=== PATIENT | male | born 1950 | race Caucasian/White ===

== ENCOUNTER → 2020-08-28 | Outpatient (CLI) | payer MEDICARE ==
--- NOTE | 2020-08-28 21:32 | CONS ---
CONSULTATION DATE OF SERVICE: 08/28/2020 This 70-year-old gentleman has been [facility] for obstructive sleep apnea-hypopnea syndrome. HISTORY OF PRESENT ILLNESS/SLEEP WAKE EVALUATION: The patient had a sleep study 20 years ago, which showed that he has obstructive sleep apnea. He was started on treatment with CPAP. Since that time, the patient continues to use his CPAP equipment. His equipment is old, apparently, according to his , even while he is using CPAP he has episodes of stopped breathing and snoring with open mouth during sleep. The patient using a nasal pillow mask. Results of previous sleep studies are not available. The patient's sleep schedule from 3 a.m. until 9:30 a.m. No problems with falling asleep, according to the patient. No TV in bedroom. He usually sleeps in the back position. He, again as mentioned above, may sleep with the open mouth during sleep and will snore. [place] Sleepiness Scale increased to 10. PAST MEDICAL HISTORY: Positive for atrial fibrillation with 3 cardiac ablation procedures. MEDICATIONS: Eliquis, metoprolol, statin - the patient does not remember the dose at night. REVIEW OF SYSTEMS: Are tiredness and sleepiness during the day. Patient may take 1 or more naps during the day. FAMILY HISTORY: Heart problems. PHYSICAL EXAM: GENERAL: A pleasant gentleman without distress. BP 136/70, HR 55, RR 15, height 5 feet 10 inches, weight 348, mass index 48.5. Temperature 97.3, oxygen saturation 94%. HEENT: Oropharynx extremely low position of soft palate. Mallampati IV. NECK: Neck is wide, measuring 19 inches in circumference. ABDOMEN: Obese. LUNGS: Clear to percussion and to auscultation. Good air exchange. No wheezing or rhonchi. HEART: S1, S2 regular. No murmurs, gallops, or rubs. ABDOMEN: Soft and nontender. Bowel sounds are present. No organomegaly appreciated. EXTREMITIES: No clubbing or cyanosis. SHELVER: Awake, alert, and oriented X3. Cranial nerves 2 to 7 intact. There is no fasciculation or atrophy noted. No focal deficits observed. IMPRESSION: 1. History of obstructive sleep apnea-hypopnea syndrome for 20 years, results of previous sleep studies are not available. While using CPAP, the patient wakes up and has episodes of snoring with open mouth, according to his . 2. Extremely low position of soft palate. Neck is wide, 19 inches in circumference. [place] Sleepiness Scale increased to 10. Obstructive sleep apnea-hypopnea syndrome. CPAP equipment is old. 3. Morbid obesity, BMI 48.5. 4. History of atrial fibrillation. 5. Status post 3 cardiac ablation procedures. 6. Hyperlipidemia. PLAN: 1. Home sleep apnea test for confirmation of obstructive sleep apnea-hypopnea syndrome. 2. CPAP if necessary, BiPAP titration for correction of respiratory abnormalities and then to get new CPAP if necessary, BiPAP equipment. 3. Patient will continue to use PAP equipment every night for the whole night. 4. Sleep hygiene with regular time in bed for at least 7-1/2 to 8 hours. 5. Precautions related to driving. No driving if feeling sleepiness. 6. I will maintain all necessary prescription for PAP supplies including mask, tube, filters. 7. Losing weight. 8. Follow-up visit in 6 months or earlier if patient has any problems. Thank you very much for referring this patient for evaluation. Sincerely, Hugo Abel MD, PhD, FAASM Diplomat of [employer] Sleep Medicine Board of [employer] [facility] [place] MMODL / ALICEN: [id number] /
== END | disposition home or self-care (01) ==
LOC: SLEEP 13:44
PROVIDERS: ATTEND Internal Medicine
DX: G47.33 Obstructive sleep apnea (adult) (pediatric) (principal); I48.91 Unspecified atrial fibrillation; E78.5 Hyperlipidemia, unspecified; E66.9 Obesity, unspecified; Z68.42 Body mass index [BMI] 45.0-49.9, adult; Z79.01 Long term (current) use of anticoagulants; Z79.899 Other long term (current) drug therapy; Z98.890 Other specified postprocedural states
CPT/HCPCS: 99211

== ENCOUNTER 2023-06-05 12:26 | Emergency (ER) | payer MEDICARE ==
--- NOTE | 2023-06-05 12:53 | ED ---
Fall HPI - General Chief Complaint: Fall Stated Complaint: Fall on thinner-Head injury Time Seen by Provider: 06/05/23 12:30 Source: patient, RN notes reviewed Mode of arrival: ambulatory - History of Present Illness Initial Comments: 73-year-old male on Eliquis presenting for head injury status post mechanical fall. Patient states he was at a [employer] hockey game 1 hour [employer] when he attempted to sit down in a chair in the arena. The chair came apart, and the patient fell back, hitting his right elbow and the back of his head on the cement ground. Denies loss of consciousness, syncope, lightheadedness, nausea, vomiting. Denies vision changes, numbness, tingling, weakness. He is complaining of right elbow pain since the fall. He is also complaining of left hip pain since the fall. He is able to weight-bear. Denies other injuries. - Related Data Allergies Allergy/AdvReac Type Severity Reaction Status Date / Time Penicillins Allergy Rash/Hives Verified 06/05/23 12:31 Review of Systems ROS Statement: Those systems with pertinent positive or pertinent negative responses have been documented in the HPI. ROS Other: All systems not noted in ROS Statement are negative. Past Medical History Past Medical History: Atrial Fibrillation History of Any Multi-Drug Resistant Organisms: None Reported Additional Past Surgical History / Comment(s): Ablation x3 Past Psychological History: No Psychological Hx Reported Smoking Status: Never smoker Past Alcohol Use History: None Reported Past Drug Use History: None Reported General Exam Limitations: no limitations General appearance: alert, in no apparent distress Head exam: Present: atraumatic, normocephalic, other (3 x 3 cm area of erythema present on back of head. Mildly tender to palpation.) Eye exam: Present: normal appearance, PERRL, EOMI. Absent: scleral icterus, conjunctival injection, periorbital swelling ENT exam: Present: normal exam, mucous membranes moist, TM's normal bilaterally Neck exam: Present: normal inspection (No C-spine tenderness to palpation). Absent: tenderness, meningismus, lymphadenopathy Respiratory exam: Present: normal lung sounds bilaterally. Absent: respiratory distress, wheezes, rales, rhonchi, stridor Cardiovascular Exam: Present: regular rate, normal rhythm, normal heart sounds. Absent: systolic murmur, diastolic murmur, rubs, gallop, clicks Extremities exam: Present: other (Right elbow: No bruising or skin changes. Mild tenderness to palpation over dorsal aspect of right elbow. Full range of motion and strength. Full sensation and radial pulses bilaterally. Cap refill less than 2 seconds) Left Hip exam: Present: normal inspection, full ROM, tenderness (Diffuse minimal tenderness along left hip.), external rotation, internal rotation. Absent: swelling, abrasion, shortening Upper Leg exam: Present: normal inspection, full ROM. Absent: tenderness Neurological exam: Present: alert, oriented X3, CN II-XII intact Psychiatric exam: Present: normal affect, normal mood Skin exam: Present: warm, dry, intact, normal color. Absent: rash Course Vital Signs 06/05/23 12:28 Temperature 98.2 F Pulse Rate 60 Respiratory 20 Rate Blood Pressure 158/91 O2 Sat by Pulse 97 Oximetry Medical Decision Making - Medical Decision Making Was pt. sent in by a medical professional or institution (, PA, YARD BRAKEMAN, urgent care, hospital, or correction...) When possible be specific @ -No Did you speak to anyone other than the patient for history (EMS, parent, family, police, friend...)? What history was obtained from this source @ -Patient's supplemented history Did you review nursing and triage notes (agree or disagree)? Why? @ -I reviewed and agree with nursing and triage notes Were old charts reviewed (outside hosp., previous admission, EMS record, old EKG, old radiological studies, urgent care reports/EKG's, correction records)? Report findings @ -No old charts were reviewed Differential Diagnosis (chest pain, altered mental status, abdominal pain women, abdominal pain men, vaginal bleeding, weakness, fever, dyspnea, syncope, headache, dizziness, GI bleed, back pain, seizure, CVA, palpatations, mental health, musculoskeletal)? @ -Head contusion, hematoma, concussion, intracranial bleed EKG interpreted by me (3pts min.). @ -None X-rays interpreted by me (1pt min.). @ -Left hip and right elbow x-ray revealed no acute fracture CT interpreted by me (1pt min.). @ -CT of head and neck revealed no acute process U/S interpreted by me (1pt. min.). @ -None done What testing was considered but not performed or refused? (CT, X-rays, U/S, labs)? Why? @ -None What meds were considered but not given or refused? Why? @ -None Did you discuss the management of the patient with other professionals (professionals i.e. , PA, YARD BRAKEMAN, lab, RT, psych nurse, social services director, ammunition storekeeper, teacher, combat systems officer, business case analyst)? Give summary @ -No Was smoking cessation discussed for >3mins.? @ -No Was critical care preformed (if so, how long)? @ -No Were there social determinants of health that impacted care today? How? (Homelessness, low income, unemployed, alcoholism, drug addiction, transportation, low edu. Level, literacy, decrease access to med. care, [facility] [facility], rehab)? @ -No Was there de-escalation of care discussed even if they declined (Discuss DNR or withdrawal of care, Hospice)? DNR status @ -No What co-morbidities impacted this encounter? (DM, HTN, Smoking, COPD, CAD, Cancer, CVA, ARF, Chemo, Hep., AIDS, mental health diagnosis, sleep apnea, morbid obesity)? @ -None Was patient admitted / discharged? Hospital course, mention meds given and route, prescriptions, significant lab abnormalities, going to OR and other pertinent info. @ -Patient was discharged. Patient was seen and evaluated for head injury status post mechanical fall 1 hour prior to arrival. There are no red flag symptoms. Neuro examination is normal. CT of head and neck, right elbow x-ray, left hip x-ray are all negative. Alarm symptoms discussed with patient, return to ER if symptoms occur. Patient discharged in stable condition. Case discussed with Dr. Brooke Undiagnosed new problem with uncertain prognosis? @ -No Drug Therapy requiring intensive monitoring for toxicity (Heparin, Nitro, Insulin, Cardizem)? @ -No Were any procedures done? @ -No Diagnosis/symptom? @ -Head injury Acute, or Chronic, or Acute on Chronic? @ -Acute Uncomplicated (without systemic symptoms) or Complicated (systemic symptoms)? @ -Uncomplicated Side effects of treatment? @ -No Exacerbation, Progression, or Severe Exacerbation? @ -No Poses a threat to life or bodily function? How? (Chest pain, [place], [place], pneumonia, PE, COPD, DKA, ARF, appy, cholecystitis, CVA, Diverticulitis, Homicidal, Suicidal, threat to staff... and all critical care pts) @ -No Disposition Clinical Impression: Head injury, acute Disposition: HOME SELF-CARE Condition: Stable Instructions (If sedation given, give patient instructions): Head Injury (ED) Additional Instructions: Please return to the Emergency Department if symptoms worsen or any other concerns. Is patient prescribed a controlled substance at d/c from ED?: No Referrals: Ge Pichardo DO [Primary Care Provider] - 1-2 days Time of Disposition: 13:56
[2023-06-05 13:09] VITALS: TEMP 98.2
--- NOTE | 2023-06-05 13:39 | CT ---
EXAMINATION TYPE: CT brain ricki red con DATE OF EXAM: 06/05/2023 COMPARISON: HISTORY: PAIN AFTER FALL OUT OF CHAIR. PT HIT BACK OF HEAD CT DLP: 1949.1 mGycm Automated exposure control for dose reduction was used. Technique: Examination of the head was done in axial plane without intravenous contrast. Coronal and sagittal reconstructions performed. CT of the cervical spine was obtained in axial plane without intravenous injection of contrast mater ial. Coronal and sagittal reformatted images were obtained from the axial views for evaluation of f ractures, spinal alignment and canal. FINDINGS: Head: There is no evidence of acute intracranial hemorrhage, acute ischemic changes, mass, mass-effect, or extra-axial fluid collection. There is no effacement of cerebral sulci or basal subarachnoid cister ns. There is no hydrocephalus. There is no midline shift. Orellana-white matter distinction is preserv ed. Trace mucosal thickening ethmoid air cells. Orbits and globes are intact. Slight leftward nasal septa l deviation. Mastoid air cells well pneumatized. No calvarial fracture. Cervical spine: No craniocervical junction abnormally, predental space widening, or prevertebral soft tissue swelling . Moderate to advanced disc/endplate degenerative changes present throughout with reversal of the sudha l cervical lordosis. Degenerative grade 1 retrolisthesis C5-C6. Remaining alignment is maintained. Li mited assessment of the spinal canal due to elevated patient shoulders and secondary artifacts. Multilevel hypertrophic facet and uncovertebral joint arthropathy is present. No acute fracture seen of the cervical spine. Moderate multilevel neuroforaminal stenoses. More severe on the left at C6-C7. Retained debris within the esophagus. Sagittal and coronal reformatted images confirm above findings. COMBINED IMPRESSION: 1. No acute intracranial abnormality seen. 2. No acute fracture of the cervical spine. Moderate to advanced multilevel spondylotic change. Degen erative grade 1 retrolisthesis C5-C6. 3. Retained debris within the esophagus could be due to GERD or esophageal dysmotility.
--- NOTE | 2023-06-05 13:45 | XR ---
EXAMINATION TYPE: XR elbow complete 3 views RT, XR Hip Complete 2 views LT DATE OF EXAM: 06/05/2023 COMPARISON: None HISTORY: 73-year-old male fall with right elbow left hip injury, pain FINDINGS: Right elbow: No joint effusion. No acute fracture, subluxation, dislocation. Left hip: Mild degenerative change with minimal spurring at the left hip. No acute fracture, subluxation, dislo cation. IMPRESSION: 1. Right elbow: No acute osseous abnormality seen. 2. Left hip: Mild degenerative change. No acute osseous abnormality seen.
[2023-06-05 14:28] VITALS: BP 142/93; PULSE 62; RESP 18
== END 2023-06-05 14:24 | disposition home or self-care (01) ==
LOC: EC 12:26
DX: S09.90XA Unspecified injury of head, initial encounter (principal); Z88.0 Allergy status to penicillin; W07.XXXA Fall from chair, initial encounter
CPT/HCPCS: 70450; 72125; 73502; 99284

== ENCOUNTER → 2023-06-08 | Outpatient (CLI) | payer MEDICARE ==
[2023-06-08 15:00] VITALS: BP 176/75; PULSE 103; TEMP 97.7; BMI 49.0
--- NOTE | 2023-06-08 16:32 | P.BASOAP ---
Subjective Progress Note Date: 06/08/23 Principal diagnosis: Morbid obesity Patient returns for recheck. Patient had his lap band placed 20 years ago or so by Dr. Gorman. Has had increased belching, regurgitation, and dysphagia. Patient unsure how much fluid is in the band. No recent workup. Objective - Vital Signs Vital signs: Vital Signs Temp 97.7 F 06/08/23 14:39 Pulse 103 H 06/08/23 14:39 Resp BP 176/75 06/08/23 14:39 Pulse Ox FiO2 Intake & Output 06/07/23 06/08/23 06/08/23 18:59 06:59 18:59 Weight 155.129 kg - Exam Abdomen: Soft, nontender, nondistended Assessment/Plan (1) Morbid obesity Narrative/Plan: 73-year-old male with dysphagia and history of obesity. His band was accessed. 3 cc was removed. Band is now empty. Will have patient follow-up in 1 month. Check upper GI at that time. Decision regarding band removal will take place at that time. The patient's lap band port was palpated. The site was aseptically prepped. The Jarrell needle was advanced into the port. A total of 3 ml of fluid was removed. Pressure was held and a sterile dressing was applied. Plan: Date: 06/08/23 Initial Weight: Initial BMI: Current Weight: 155.129 kg Current BMI: 49.0 Type of Surgery: Total Volume in Band: Previous Volume: Volume Removed: Volume Added: Band Size:
== END ==
LOC: BARWHC3 13:56
PROVIDERS: ATTEND Surgery
DX: E66.01 Morbid (severe) obesity due to excess calories (principal); R13.10 Dysphagia, unspecified; Z68.42 Body mass index [BMI] 45.0-49.9, adult; Z88.0 Allergy status to penicillin
CPT/HCPCS: 43999